=== PATIENT | female | born 1970 | race Hispanic/Latino ===

== ENCOUNTER 2019-05-09 05:58 | Day surgery (SDC) | payer BC ==
[2019-05-05 09:58] VITALS: BP 163/72
[2019-05-05 10:13] LABS: APPEARANCE,URINE Clear (CLEAR); BASOPHILS % (AUTO) 0.6 % (0.0-5.0); BILIRUBIN,URINE Negative (NEGATIVE); COLOR,URINE Yellow (YELLOW); EOSINOPHILS % (AUTO) 1.4 % (0.0-8.0); GLUCOSE, URINE (UA) Negative (NEGATIVE); KETONES,URINE Negative (NEGATIVE); LEUKOCYTE ESTERASE ,URINE Small (NEGATIVE); LYMPHOCYTES % (AUTO) 19.9 % (21.0-51.0); MEAN CORPUSCULAR HEMOGLOBIN 30.7 pg (27.0-33.0); MEAN CORPUSCULAR HGB CONC 33.7 g/dL (32.0-36.0); MEAN CORPUSCULAR VOLUME 90.9 fL (79-99); MONOCYTES % (AUTO) 5.7 % (3.0-13.0); NEUTROPHILS % (AUTO) 72.4 % (40.0-77.0); NITRATE,URINE Negative (NEGATIVE); NUCLEATED RED BLOOD CELLS 0.1 % (0.0-0.19); OCCULT BLOOD,URINE Negative (NEGATIVE); PH,URINE 6.5 (5.0-8.0); PLATELET COUNT (AUTO) 350 K/uL (130-400); PROTEIN,URINE Negative (NEGATIVE); RED BLOOD CELL COUNT(AUTO) 4.51 MIL/uL (4.00-5.50); RED CELL DISTRIBUTION WIDTH 13.2 % (11.0-15.5); WHITE BLOOD COUNT (AUTO) 9.8 K/uL (4.8-10.8)
[2019-05-05 10:23] LABS: BACTERIA,URINE Rare /HPF (None Seen); RBC,URINE 0-1 /HPF (0-1)
[2019-05-05 10:24] LABS: SQUAMOUS EPITHELIAL CELL,UR Few /HPF (0-2)
[2019-05-05 10:28] LABS: INR 0.95 (0.85-1.15); PARTIAL THROMBOPLASTIN TIME 26.4 SEC (26.3-35.5)
[2019-05-05 10:29] LABS: CREATININE 0.8 mg/dL (0.5-1.5); POTASSIUM 4.2 mmol/L (3.5-5.1)
--- NOTE | 2019-05-05 10:56 | NUR ---
MRSA CONTACT SPOKE WITH CORY (EMPLOYEE [facility] [facility]) REGRADING CONTACT ISOLATION. PER CORY, THE MRSA CONTACT ISOLATION IS GOING TO BE REMOVED FROM PATIENT RECORD. PATIENT DOES NOT NEED TO BE ON ISOLATION.
--- NOTE | 2019-05-08 13:10 | NUR ---
ABNORMAL URINALYSIS REPORTED ABNORMAL UA TO DR FISHER, PER DR FISHER NO NEW ORDERS AND OK TO PROCEED WITH HEART CATH
[~2019-05-09] VITALS: Ht 152.4 cm; Wt 111.6 kg
[2019-05-09] VITALS (11 sets, daily range): BP systolic 132–181; BP diastolic 72–87
[~2019-05-09 05:58] MED LIST: ASCO1CAP4 PO; ASPI-1197 PO; DOCU100C33 PO; GABA-531 PO; GLIM4TAB3 PO; INSU100I3 SQ; LEVO50TA11 PO; LOSA50TA64 PO; METF-446 PO; METO25TA6 PO; MONT10TA24 PO; MULT1CAP32 PO; PANT40TA25 PO; SIME125C81 PO; SIMV20TA6 PO
[2019-05-09] MEDS ORDERED: SODIUM CHLORIDE 0.9% 1000ML 1,000 ML IV ONE (06:20)
[2019-05-09] MEDS ORDERED: NITROGLYCERIN 5 MG/ML 10 ML VIAL IV ONE (07:10)
[2019-05-09] MEDS ORDERED: BIVALIRUDIN 250 MG/VIAL IV ONE (07:10)
[2019-05-09] MEDS ORDERED: LIDOCAINE HCL 2% 20ML ONE (07:11)
[2019-05-09] MEDS ORDERED: IOHEXOL-350 50ML VIAL IV ONE (07:11)
[2019-05-09] MEDS ORDERED: IOHEXOL 350 MG/ML 100ML INFUS..BTL IV ONE (07:11)
--- NOTE | 2019-05-09 07:20 | NUR ---
Pt to laboratory courier report given and care rendered over to ELIZABETH Gould.
[2019-05-09] MEDS ORDERED: MIDAZOLAM HCL 1 MG/ML 2ML VIAL ONE (08:04)
[2019-05-09] MEDS ORDERED: SODIUM CHLORIDE 0.9% 1000ML 1,000 ML IV SCH (08:54)
[2019-05-09] MEDS ORDERED: GLUCAGON 1MG KIT 1 MG ML IM PRN (09:00)
[2019-05-09] MEDS ORDERED: DEXTROSE 50%-WATER 50 ML DISP.SYRIN IV PRN (09:00)
[2019-05-09] MEDS ORDERED: INSULIN HUMULIN R 100 UNIT/ML 3ML ONE (09:49)
[2019-05-09] MEDS ORDERED: INSULIN HUMULIN R 100 UNIT/ML 3ML SQ SCH (11:30)
--- NOTE | 2019-05-09 13:10 | NUR ---
PT DISCHARGED HOME, AMBULATING WELL, TOLERATING PO FLUIDS/SOLIDS WELL, VOIDING. PT DENIES ANY SEVERE PAIN, NAUSEA OR DIZZINESS. RIGHT GROIN CATH SITE REMAINS SOFT, DRY, CLEAN, AND INTACT. PT AND SISTER REMINDED OF ROUTINE AND EMERGENCY CARE OF CATH SITE. PT AND SISTER DENY ANY FURTHER QUESTIONS AT THIS TIME.
== END 2019-05-09 13:10 | disposition home or self-care (01) ==
LOC: DAH 05:58
PROVIDERS: ATTEND Internal Medicine Cardiovascular Disease
DX: I25.10 Atherosclerotic heart disease of native coronary artery without angina pectoris (principal); R94.39 Abnormal result of other cardiovascular function study; I10 Essential (primary) hypertension; E78.5 Hyperlipidemia, unspecified; E03.9 Hypothyroidism, unspecified; E66.9 Obesity, unspecified; Z79.01 Long term (current) use of anticoagulants; Z79.899 Other long term (current) drug therapy; Z68.42 Body mass index [BMI] 45.0-49.9, adult; Z79.4 Long term (current) use of insulin; Z79.84 Long term (current) use of oral hypoglycemic drugs; Z82.49 Family history of ischemic heart disease and other diseases of the circulatory system; Z83.3 Family history of diabetes mellitus; Z82.5 Family history of asthma and other chronic lower respiratory diseases
CPT/HCPCS: 36415; 71045; 80048; 81001; 82948 ×2; 84703; 85025; 85610; 85730; 93005; 93458; A4215; A4216; A4221; A4222; A4223 ×3; A4606; C1760; C1894 ×2; J1644; J1815; J2250; J3490 ×2; J7030; Q9965; Q9967 ×2; 99156; 99157; J0583

== ENCOUNTER → 2021-01-21 | Outpatient (CLI) | payer BC ==
[~2021-01-21] MED LIST changes: -GLIM4TAB3 PO; +GLIM4TAB36 PO; -MONT10TA24 PO; +MONT10TA32 PO; -PANT40TA25 PO; +PANT40TA54 PO; +SIMV-43 PO; -SIMV20TA6 PO
== END | disposition home or self-care (01) ==
LOC: RAH 13:00
PROVIDERS: ATTEND Internal Medicine
DX: R06.09 Other forms of dyspnea (principal)
CPT/HCPCS: 71046

== ENCOUNTER → 2021-09-08 | Outpatient (CLI) | payer OTHER ==
[~2021-09-08] MED LIST changes: +MONT-39 PO; -MONT10TA32 PO
== END | disposition home or self-care (01) ==
LOC: RAH 11:23
PROVIDERS: ATTEND Physical Medicine & Rehabilitation
DX: M47.816 Spondylosis without myelopathy or radiculopathy, lumbar region (principal); M43.5X6 Other recurrent vertebral dislocation, lumbar region; M65.321 Trigger finger, right index finger; R20.0 Anesthesia of skin; I65.22 Occlusion and stenosis of left carotid artery; Z88.8 Allergy status to other drugs, medicaments and biological substances
CPT/HCPCS: 72050; 72114

== ENCOUNTER → 2022-03-30 | Outpatient (CLI) | payer OTHER | END | disposition home or self-care (01) | LOC: RAH 11:05 | PROVIDERS: ATTEND Internal Medicine | DX: Z01.818 Encounter for other preprocedural examination (principal) | CPT/HCPCS: 71046 ==

== ENCOUNTER → 2022-05-29 | Outpatient (CLI) | payer OTHER | END | disposition home or self-care (01) | LOC: RAH 11:20 | PROVIDERS: ATTEND Internal Medicine | DX: I65.23 Occlusion and stenosis of bilateral carotid arteries (principal) | CPT/HCPCS: 93880 ==

== ENCOUNTER → 2022-06-18 | Outpatient (CLI) | payer OTHER | END | disposition home or self-care (01) | LOC: RAH 08:32 | PROVIDERS: ATTEND Internal Medicine | DX: M54.50 Low back pain, unspecified (principal); M54.16 Radiculopathy, lumbar region | CPT/HCPCS: 72148 ==

== ENCOUNTER → 2024-06-19 | Outpatient (CLI) | payer OTHER ==
--- NOTE | 2024-06-19 12:45 | HMCIMG ---
SHOULDER COMP 2+VWS LT HISTORY: Left shoulder pain COMPARISON: None TECHNIQUE: 2 images of left shoulder were obtained. FINDINGS: There is no acute displaced fracture or dislocation. Degenerative changes are seen. IMPRESSION: 1. Findings as described above.
--- NOTE | 2024-06-19 12:45 | HMCIMG ---
SHOULDER COMP 2+VWS RT HISTORY: Right shoulder pain COMPARISON: None TECHNIQUE: 2 images of right shoulder were obtained. FINDINGS: There is no acute displaced fracture or dislocation. Degenerative changes are seen. IMPRESSION: 1. Findings as described above.
== END | disposition home or self-care (01) ==
LOC: RAH 10:00
PROVIDERS: ATTEND Internal Medicine
DX: M19.012 Primary osteoarthritis, left shoulder (principal); M19.011 Primary osteoarthritis, right shoulder; M25.512 Pain in left shoulder; M25.511 Pain in right shoulder; W19.XXXA Unspecified fall, initial encounter
CPT/HCPCS: 73030

== ENCOUNTER → 2025-02-05 | Outpatient (CLI) | payer OTHER ==
--- NOTE | 2025-02-05 16:39 | HMCIMG ---
ABD 1VW HISTORY: Pain COMPARISON: None FINDINGS: A frontal projection of the abdomen was obtained. A nonspecific bowel gas pattern is seen. Fecal material is seen in the colon. Degenerative changes of the thoracolumbar spine are noted. IMPRESSION: 1. A nonspecific bowel gas pattern is seen. Fecal material is seen in the colon.
== END | disposition home or self-care (01) ==
LOC: RAH 12:13
PROVIDERS: ATTEND Internal Medicine
DX: R19.5 Other fecal abnormalities (principal); R10.84 Generalized abdominal pain; M47.815 Spondylosis without myelopathy or radiculopathy, thoracolumbar region
CPT/HCPCS: 74018